=== PATIENT | female | born 1975 | race Caucasian/White ===

== ENCOUNTER → 2016-07-25 | Outpatient (CLI) | payer OTHER ==
[~2016-07-25] MED LIST: MULTTAB58 PO; PANT40TA PO; PRED50TA PO
== END | disposition home or self-care (01) ==
LOC: C.PAPS 08:48
PROVIDERS: ATTEND Obstetrics & Gynecology
DX: Z12.4 Encounter for screening for malignant neoplasm of cervix (principal)

== ENCOUNTER → 2016-07-25 | Outpatient (CLI) | payer BC, OTHER ==
--- NOTE | 2016-07-25 08:32 | DIAGNOSTIC IMAGING REPORT ---
THYROID ULTRASONOGRAPHY CLINICAL HISTORY: Multinodular thyroid goiter COMPARISON STUDY: Outside study dated 07/13/2015 FINDINGS: The right lobe of thyroid measures 6 x 1.6 x 1.8 cm. There is a circumscribed hypoechoic 6 mm upper pole nodule, and circumscribed hypoechoic 6 mm lower pole nodule. The left lobe measures 5.1 x 1.7 x 1.9 cm. There is a circumscribed isoechoic mid pole nodule measuring 24 x 11 x 17 mm. This contains scattered bright echoes representing either colloid artifact or calcifications. This nodule measured 23 mm in long axis on the preceding outside study. IMPRESSION: Multinodular thyroid gland similar to the prior study. Electronically signed by: Kain Adames M.D. 07/25/2016 8:31 AM Dictated Date/Time: 07/25/2016 8:24 AM
== END | disposition home or self-care (01) ==
LOC: C.ULTR 07:49
DX: E04.2 Nontoxic multinodular goiter (principal)